=== PATIENT | male | born 1965 | race Caucasian/White ===

== ENCOUNTER → 2017-07-23 | Outpatient (CLI) | payer OTHER ==
[~2017-07-23] MED LIST: ALBU1AER9 INH; ATOR10TA82 PO; MULT-506 PO; RANI150T3 PO; RIVA1TAB4 PO
--- NOTE | 2017-07-23 12:16 | DIAGNOSTIC IMAGING REPORT ---
SINUSES MIN 3 VIEWS ROUTINE HISTORY: 52 years-old Male R05 [id number] Allergic rhinitis acute cough with allergic rhinitis COMPARISON: None available TECHNIQUE: 4 views of the paranasal sinuses FINDINGS: Mastoid air cells and paranasal sinuses appear clear. Nasal terminates also appear clear. No acute facial bone fracture or dislocation. Degenerative changes of the cervical spine are noted. No opaque foreign body. IMPRESSION: No evidence of significant paranasal sinus disease. The above report was generated using voice recognition software. It may contain grammatical, syntax or spelling errors. Electronically signed by: Girma Redding M.D. 07/23/2017 12:15 PM Dictated Date/Time: 07/23/2017 12:13 PM
== END | disposition home or self-care (01) ==
LOC: C.RAD1850 10:15
PROVIDERS: ATTEND Internal Medicine Pulmonary Disease
DX: J30.9 Allergic rhinitis, unspecified (principal); R05 Cough

== ENCOUNTER → 2017-08-03 | Outpatient (CLI) | payer OTHER ==
[~2017-08-03] MED LIST changes: +OPTIRAY 320 IV PRN; +PERFLUTREN LIPID MICROSPHERE (DEFINITY) IV ONE
--- NOTE | 2017-08-03 13:24 | DIAGNOSTIC IMAGING REPORT ---
CT SCAN OF THE CHEST WITH IV CONTRAST CLINICAL HISTORY: Cough. Dyspnea. Chronic reflux. COMPARISON STUDY: Chest CT dated 09/08/2013. TECHNIQUE: Following the IV administration of 94 cc of Optiray 320, CT scan of the thorax was performed from the thoracic inlet to the upper abdomen. Images are reviewed in the axial, sagittal, and coronal planes. IV contrast was administered without complication. A dose lowering technique was utilized adhering to the principles of ALARA. The examination is modestly degraded by motion artifact. CT DOSE: 533.50 mGy.cm FINDINGS: Thyroid: Imaged portions of the thyroid gland are normal in size and attenuation. Thoracic aorta: There is mild atherosclerotic calcification of the thoracic aorta, which is normal in caliber and demonstrates standard 3-vessel arch anatomy. No dissection is seen. Pulmonary vasculature: The pulmonary trunk is normal in caliber. There are no filling defects identified in the central pulmonary vessels to indicate pulmonary embolus. Note that this examination was not protocoled for evaluation of the pulmonary arteries. Heart: The heart is enlarged and without pericardial effusion. The coronary arteries are densely calcified. Lungs and pleural spaces: There is no airspace consolidation or pleural effusion. The trachea and central airways are clear. Mediastinum: There is no mediastinal lymphadenopathy. Lynn: Clear. Axillae: There is no axillary lymphadenopathy. Upper abdomen: There is a small hiatal hernia. Findings suggest hepatic steatosis. Skeletal structures: No lytic or blastic bony lesions are seen. IMPRESSION: 1. The lungs are clear. 2. Cardiomegaly. 3. Suspect hepatic steatosis. Electronically signed by: Jem Butler M.D. 08/03/2017 1:22 PM Dictated Date/Time: 08/03/2017 1:19 PM
--- NOTE | 2017-08-03 16:21 | ECHOCARDIOGRAM REPORT ---
*NOTICE TO RECEIVING [employer] This information is strictly Confidential and protected under [place] law. [place] law prohibits you from making any further disclosure of this information unless further disclosure is expressly permitted by the written consent of the person to whom it pertains or is authorized by law. A general authorization for the release of medical or other information is not sufficient for this purpose. Hospital accepts no responsibility if the information is made available to any other person, INCLUDING THE PATIENT. Interpretation Summary * Name: JUAN ANGELES Study Date: 08/03/2017 12:38 PM BP: 122/82 mmHg * Patient Location: [facility] HR: 77 * : 1965 (M/d/yyyy) Gender: Male Height: 69 in * Age: 52 yrs Ethnicity: CA Weight: 226 lb * Ordering Physician: Lito Mehta * Referring Physician: Lito Mehta * Performed By: Dorothy Garcia RDCS * * Reason For Study: CHEST DISCOMFORT, COUGH * BSA: 2.2 m2 * -- Conclusions -- * Left ventricular systolic function is normal. * Borderline aortic root dilatation. Procedure Details * A contrast injection of Definity was performed to improve assessment of LV function. * Contrast was injected into an intravenous site in the left arm. * One vial of Definity ultrasound contrast was diluted in normal saline to a total volume of 10 ml. A total of '1' ml of solution was administered during imaging. * Lot # [id number] of Definity utilized for procedure. * Expiration date JUL 30. * The attending nurse who injected the contrast agent was ELIZABETH DOMINGUEZ RN. Left Ventricle * The left ventricle is normal in size. * There is normal left ventricular wall thickness. * Ejection Fraction = 50-55%. * Left ventricular systolic function is normal. * Indeterminate diastolic function * The left ventricular wall motion is normal. Right Ventricle * The right ventricle is normal in size and function. * The right ventricular systolic function is normal as assessed by tricuspid annular plane systolic excursion (TAPSE) (normal >1.5 cm). Atria * The left atrial size is normal. * Right atrial size is normal. Mitral Valve * The mitral valve is grossly normal. * There is trace mitral regurgitation. Tricuspid Valve * The tricuspid valve is not well visualized, but is grossly normal. * Significant tricuspid regurgitation is absent. Aortic Valve * The aortic valve is normal in structure and function. * The aortic valve is trileaflet. * No hemodynamically significant valvular aortic stenosis. * There is no significant aortic regurgitation. Pulmonic Valve * The pulmonic valve is not well visualized. Great Vessels * Borderline aortic root dilatation. Pericardium/Pleural * There is no pericardial effusion. MMode 2D Measurements and Calculations IVSd 1.2 cm IVSs 1.8 cm LVIDd 5.3 cm LVIDs 3.8 cm LVPWd 1.0 cm LVPWs 1.5 cm IVS/LVPW 1.1 FS 29.4 % EDV(Teich) 136.8 ml ESV(Teich) 60.3 ml EF(Teich) 55.9 % EDV(cubed) 150.9 ml ESV(cubed) 53.1 ml EF(cubed) 64.9 % % IVS thick 54.1 % % LVPW thick 49.4 % LV mass(C)d 227.4 grams LV mass(C)dI 104.5 grams/m\S\2 LV mass(C)s 251.3 grams LV mass(C)sI 115.5 grams/m\S\2 SV(Teich) 76.5 ml SI(Teich) 35.2 ml/m\S\2 SV(cubed) 97.9 ml SI(cubed) 45.0 ml/m\S\2 Ao root diam 4.0 cm Ao root area 12.4 cm\S\2 LA dimension 3.9 cm LA/Ao 0.98 LVAd ap4 36.9 cm\S\2 LVLd ap4 8.6 cm EDV(MOD-sp4) 127.9 ml EDV(sp4-el) 135.0 ml LVAs ap4 22.4 cm\S\2 LVLs ap4 7.0 cm ESV(MOD-sp4) 61.0 ml ESV(sp4-el) 61.0 ml EF(MOD-sp4) 52.3 % EF(sp4-el) 54.8 % LVAd ap2 33.7 cm\S\2 LVLd ap2 8.4 cm EDV(MOD-sp2) 108.9 ml EDV(sp2-el) 114.4 ml LVAs ap2 19.2 cm\S\2 LVLs ap2 6.7 cm ESV(MOD-sp2) 44.6 ml ESV(sp2-el) 46.7 ml EF(MOD-sp2) 59.1 % EF(sp2-el) 59.2 % LVLd %diff -1.45 % EDV(MOD-bp) 119.6 ml LVLs %diff -4.28 % ESV(MOD-bp) 53.6 ml EF(MOD-bp) 55.2 % SV(MOD-sp4) 66.9 ml SI(MOD-sp4) 30.7 ml/m\S\2 SV(MOD-sp2) 64.3 ml SI(MOD-sp2) 29.6 ml/m\S\2 SV(MOD-bp) 66.0 ml SI(MOD-bp) 30.3 ml/m\S\2 SV(sp4-el) 74.0 ml SI(sp4-el) 34.0 ml/m\S\2 SV(sp2-el) 67.7 ml SI(sp2-el) 31.1 ml/m\S\2 Doppler Measurements and Calculations MV E max qian 79.3 cm/sec MV A max qian 73.2 cm/sec MV E/A 1.1 MV dec time 0.16 sec Ao V2 max 104.7 cm/sec Ao max PG 4.4 mmHg Ao max PG (full) 1.9 mmHg LV V1 max PG 2.5 mmHg LV V1 max 78.5 cm/sec
== END | disposition home or self-care (01) ==
LOC: C.CTS 12:11
PROVIDERS: ATTEND Internal Medicine Pulmonary Disease
DX: Z51.81 Encounter for therapeutic drug level monitoring (principal); Z79.01 Long term (current) use of anticoagulants; K21.0 Gastro-esophageal reflux disease with esophagitis; R05 Cough; R07.89 Other chest pain; I51.7 Cardiomegaly

== ENCOUNTER → 2017-08-17 | Day surgery (SDC) | payer OTHER ==
[2017-08-17] VITALS (7 sets, daily range): BP systolic 118–129; BP diastolic 78–89; PULSE 58–69; TEMP 36–36.7; O2SAT 94–97; Ht 175.3 cm; Wt 101.4 kg
[~2017-08-17] VITALS: Ht 175.3 cm; Wt 101.4 kg
[~2017-08-17] MED LIST changes: +FENTANYL CITRATE INJ 50 MCG/1 ML 2 ML VIAL IV ONE; +LIDOCAINE 4% INH SOLN 4 ML BTL TOP ONE; +LIDOCAINE HCL 2% LOCAL 50ML VIAL INSTIL ONE; +LIDOCAINE VISCOUS 2% 100ML TOP ONE; +MIDAZOLAM HCL 5 MG/ML 1 ML VIAL IV ONE; -OPTIRAY 320 IV PRN; -PERFLUTREN LIPID MICROSPHERE (DEFINITY) IV ONE
--- NOTE | 2017-08-17 09:25 | History and Physical ---
History & Physical Date of Service August 17, 2017. History & Physical 52-year-old gentleman here for bronchoscopic evaluation of chronic cough: Pt presents for a persistent cough. Has post nasal drip, reflux. It switched between dry cough and productive cough with minimal clear sputum. Pt states he coughs a lot and coughs hard. Pt denies any coughing to the point of vomitting, but has seen stars and got light headed. Pt states this has been going on a little over a year. Has taken OTC allerygy medicine, but doesn't help. Cough drops don't help. Denies any OTC cough medicine. Pt states talking a lot and if he gets warm, those things seems to trigger the coughing fit. Pt is taking all rx'd medications as directed./bnw 52-year-old white male with 2 grown children age 26 and 21 works as a computer programmer analyst [employer] that [employer] was referred to me by his primary care provider Timmy Sarmiento/JESUS ALBERTO. He has smoked a half a pack of cigarettes a day for 8-10 years having quit 15 years ago. For 2 years he has had this cough that others have attributed to postnasal drainage and reflux. The latter was treated with ranitidine and he has been on Zyrtec and Amy but has the cough all the time. Is the cough is mostly dry cough associated with hoarseness and a raspy voice. The cough awaken his from sleep 2-3 times at night and he takes multiple cough drops. He talks too much begins to cough. Today history of DVT and pulmonary emboli that of repeat occurred in the past so was on lifetime anticoagulant therapy. There is a strong family history of chronic thrombogenic disease with his sister and on his mother side and multiple members on anticoagulant therapy. He has chronic reflux esophagitis and is treated for that along with dyslipidemia. Chest x-ray in 2013 showed mild retrocardiac opacity with a CT angiogram done at that same time showing extensive bilateral pulmonary emboli involving the left and right side with extension into the small a pulmonary arterial branches and small left pleural effusion noted. Sleep study in [address] Gardner suggest moderate obstructive sleep apnea with an apnea-hypopnea index of 16.5. He was recommended but apparently not started on CPAP therapy. He wakes up 2-3 times a night but his attributes that to his training as a [employer] hearing the slightest noise. He has gained 45 pounds in the past year. He admits to some symptoms of daytime hypersomnolence. Hypercoagulable workup showed a negative beta 2 GPI IgG , IgA, IgM Ab and negative anticardiolipin IgG, IgA and IgM antibody. The [id number] mutation was not detected. Lupus anticoagulant was negative and protein C and S activity were within normal limits. Antithrombin 3 was within normal limits and factor 5 Leiden mutation was within normal limits were not detected. Active Problems 1. Anticoagulation management encounter (Z51.81,Z79.01) 2. Chronic reflux esophagitis (K21.0) 3. Cough (R05) 4. History of colonic polyps (Z86.010) 5. Hypercholesterolemia (E78.00) 6. Internal hemorrhoids (K64.8) 7. Male erectile disorder (N52.9) 8. Screening for diabetes mellitus (Z13.1) Past Medical History 1. History of Acute deep vein thrombosis of distal leg (I82.4Z9) 2. History of Bronchospasm (J98.01) 3. History of Encounter for screening colonoscopy (Z12.11) 4. History of colonic polyps (Z86.010) 5. History of influenza vaccination (Z92.29) 6. History of onychomycosis (Z86.19) 7. History of pulmonary embolism (Z86.711) 8. History of Need for hepatitis C screening test (Z11.59) 9. History of Rhinitis (J31.0) 10. History of Tinea versicolor (B36.0) 11. History of Tinea versicolor (B36.0) Family History 1. Family history of DVT (deep vein thrombosis) in 2. Family history of diabetes mellitus (Z83.3) 3. Family history of sleep apnea (Z82.0) 4. Family history of myocardial infarction (Z82.49) Social History Always uses seat belt Never smoker Current Meds 1. RaNITidine HCl - 150 MG Oral Tablet; TAKE 1 TABLET TWICE DAILY; Therapy: 23Jun2017 to (Last Rx:23Jun2017) Requested for: 23Jun2017 Ordered 2. Atorvastatin Calcium 20 MG Oral Tablet; TAKE 1 TABLET DAILY; Therapy: 07Jul2014 to (Last Rx:[id number]) Requested for: 22Dec2016 Ordered 3. Xarelto 20 MG Oral Tablet; Take 1 tablet daily; Therapy: 17Nov2013 to (Evaluate:18Sep2017) Requested for: 22Dec2016; Last Rx:[id number] Ordered 4. Ketoconazole 200 MG Oral Tablet; TAke 1 PO BID as directed; Therapy: 19Feb2011 to (Last Rx:23Jun2017) Requested for: 23Jun2017 Ordered 5. GNP Acid Control [address] 150 MG Oral Tablet; TAKE 1 TABLET Daily PRN; Therapy: 23Jun2017 to Recorded 6. Multivitamin Adult Oral Tablet; TAKE 1 TABLET DAILY; Therapy: 23Jun2017 to Recorded Vital Signs Weight: 236 lb 5 oz BMI Calculated: 37.01 BSA Calculated: 2.17 Temperature: 97.8 F, Oral Heart Rate: 74 O2 Saturation: 96 Respiration: 16 Blood Pressure: 132 / 84, RUE, Sitting Constitutional General appearance: No acute distress, well appearing and well nourished. Eyes Conjunctiva and lids: No swelling, erythema, or discharge. Pupils and irises: Equal, round and reactive to light. Ears, Nose, Mouth, and Throat External inspection of ears and nose: Normal. Otoscopic examination: Tympanic membrance translucent with normal light reflex. Canals patent without erythema. Oropharynx: Normal with no erythema, edema, exudate or lesions. Pulmonary Respiratory effort: No increased work of breathing or signs of respiratory distress. Auscultation of lungs: Clear to auscultation. Cardiovascular Palpation of heart: Normal PMI, no thrills. Auscultation of heart: Normal rate and rhythm, normal S1 and S2, without murmurs. Examination of extremities for edema and/or varicosities: Normal. Abdomen Abdomen: Non-tender, no masses. Liver and spleen: No hepatomegaly or splenomegaly. Lymphatic Palpation of lymph nodes in neck: No lymphadenopathy. Musculoskeletal Gait and station: Normal. Digits and nails: Normal without clubbing or cyanosis. Inspection/palpation of joints, bones, and muscles: Normal. Skin Skin and subcutaneous tissue: Normal without rashes or lesions. Neurologic Cranial nerves: Cranial nerves 2-12 intact. Reflexes: 2+ and symmetric. Sensation: No sensory loss. Psychiatric Orientation to person, place and time: Normal. Mood and affect: Normal.
--- NOTE | 2017-08-17 10:46 | Pre Sedation Assessment ---
Pre Sedation Assessment General Date of Sedation: August 17, 2017. Vital Signs Past 12 Hours Date Time Temp Pulse Resp B/P (MAP) Pulse Ox O2 Delivery O2 Flow Rate FiO2 08/17/17 09:30 36.7 68 18 118/79 (92) 95 Room Air Review Cardiovascular: regular rate, rhythm, no edema, no gallop, no JVD, no murmur, normal peripheral pulses Lungs: chest non-tender, lungs clear, normal breath sounds, no respiratory distress, no accessory muscle use Pre-Sedation Airway Assessment Smoking Status: Former Smoker Hx of Sleep Apnea: Yes Hx of difficult intubation: No Short Thick Neck: Yes Thyro-mental Distance: > 3 Finger Breadths Oral Cavity: WNL Mallampati Classification: Class II ASA Classification: Class II NPO Status Date of Last Intake of Fluids: August 16, 2017 Time of Last Intake of Fluids: 2099 Date of Last Intake of Solids: August 16, 2017 Time of Last Intake of Solids: 2099 Procedure Planning Contraindications for Sedation: None Current Medications Reviewed: Yes Notes The planned sedation has been discussed with the patient. Informed Consent was obtained. I have identified the patient, determined the appropriateness of sedation and have assessed the patient immediately prior to the procedure. All medicine(s) and interventions are by my order.
--- NOTE | 2017-08-17 10:46 | History & Physical Bridge Note ---
H&P Re-Evaluation Bridge Note: I have examined the patient, reviewed the History & Physical and in the interval since the performance of the History & Physical I have noted the following changes of clinical significance: No changes noted
--- NOTE | 2017-08-17 11:26 | Bronchoscopy Procedure Note ---
Bronchoscopy Procedure Note Procedure: Bronchoscopy, conscious sedation, the bronchial lavage right middle lobe Consent: Obtained through the patient placed into the chart Pre-procedural diagnosis: Chronic cough Post-procedural diagnosis: Chronic cough Start time:1105 End time: 1120 Total time: 15 minutes Analgesia: 2% liquid lidocaine: Via nebulizer 4% gel lidocaine: Via right naris 2% liquid lidocaine: Via bronchoscopy Sedation: Versed IV: 3mg Fentanyl IV: 75g Procedure: The [employer] video bronchoscope was used for this procedure and passed down through the right naris Right naris/posterior naris/posterior oropharynx: Anatomically within normal limits Glottis: Anatomically within normal limits Vocal cords: Proper abduction and abduction, anatomically within normal limits Subglottis/trachea/Darlene: Anatomically within normal limits Right bronchial tree: Right mainstem bronchus: Anatomically within normal limits Right upper lobe: Anatomically within normal limits Bronchus intermedius: Anatomically within normal limits Right middle lobe: Anatomically within normal limits Right lower lobe: Anatomically within normal limits Findings: No significant findings noted Left bronchial tree: Left mainstem bronchus: Anatomically within normal limits Left upper lobe: Anatomically within normal limits Lingula: Anatomically within normal limits Left lower lobe: Anatomically within normal limits Findings: No significant findings noted Bronchial alveolar lavage: Right middle lobe EBL: None Complications: None Follow-up: [facility]SU
--- NOTE | 2017-08-17 11:26 | Post Sedation Assessment ---
Post Sedation Assessment General Date of Sedation August 17, 2017. Vital Signs: Vital Signs Past 12 Hours Date Time Temp Pulse Resp B/P (MAP) Pulse Ox O2 Delivery O2 Flow Rate FiO2 08/17/17 11:20 67 21 131/107 100 Oxymask 4 08/17/17 11:15 61 16 129/82 100 Oxymask 4 08/17/17 11:10 58 16 116/85 100 Oxymask 4 08/17/17 11:05 48 21 126/82 100 Oxymask 4 08/17/17 11:02 51 21 129/85 100 Oxymask 4 08/17/17 09:30 36.7 68 18 118/79 (92) 95 Room Air Post Procedure Recovery Score Activity: (2) Moves 4 extremities * Respiration: (2) Deep breath/cough Circulation: (2) +/-20% PreAnes Value Consciousness: (2) Fully Awake Oxygen Saturation: (1) O2 needed for >90% Discharge Sedation Level of Care: Fast Track Phase II Post Sedation Plan On clinical assessment, the patient appears to have tolerated the sedation without complications. Patient is recovering as anticipated. Patient will continue to be monitored by nursing and may be discharged when sedation discharge criteria are met per below protocol. Upon Completions of procedure and additional 15 minutes continue every 5 minute vital signs and the P.A.R. score; then discharge to a Phase I or Fast Track to Phase II per the following guidelines: * Discharge Patient to appropriate Phase II area if PAR is 8 or greater or return to pre- procedure baseline. The post - procedure orders will be as directed. * If PAR score is less than 8 or not return to pre-procedure baseline then patient will follow Phase I monitoring till PAR is reached for Phase II. The Phase I may be done in procedure room or may call to secure a Phase I area. * If naloxone or flumazenil are used for reversal, hold in Phase I for an additional 60 -120 minutes before discharge to Phase II. Please call the Sedation Physician to re-evaluate and complete post-note for discharge to Phase II area. Do NOT discharge from procedure sedation or Phase 1 until post- sedation evaluation note is complete by procedure /sedation MD Sedation Discharge Instructions to be given to the patient at discharge to home.
--- NOTE | 2017-08-17 11:30 | Discharge Instructions ---
Discharge Instructions Date of Service August 17, 2017. Admission Reason for Admission: Cough, Shortness Of Breath Discharge Discharge Diagnosis / Problem: Chronic cough Discharge Goals Goal(s): Diagnostic testing Activity Recommendations Activity Limitations: resume your previous activity Exercise/Sports Limitations: as tolerated Driving or Machine Use: resume 1 day after discharge . Instructions / Follow-Up Instructions / Follow-Up Follow-up with Dr. Lito Mehta at the [facility] pulmonary clinic Current Hospital Diet Patient's current hospital diet: Discharge Diet Recommended Diet: Regular Diet Procedures Procedures Performed: bronchoscopy, conscious sedation and bronchial lavage of the right middle lobe Pending Studies Studies pending at discharge: no Medical Emergencies . Who to Call and When: Medical Emergencies: If at any time you feel your situation is an emergency, please call 911 immediately. . Non-Emergent Contact Non-Emergency issues call your: [facility] [employer] Call Non-Emergent contact if: temperature is above 101 . . "Provider Documentation" section prepared by Redd Reyes. .
== END | disposition home or self-care (01) ==
LOC: C.ACU 08:29
PROVIDERS: ATTEND Internal Medicine Critical Care Medicine
DX: R05 Cough (principal); N52.9 Male erectile dysfunction, unspecified; K21.0 Gastro-esophageal reflux disease with esophagitis; E78.5 Hyperlipidemia, unspecified; Z79.01 Long term (current) use of anticoagulants; E78.00 Pure hypercholesterolemia, unspecified; Z86.718 Personal history of other venous thrombosis and embolism; Z87.891 Personal history of nicotine dependence; Z86.711 Personal history of pulmonary embolism; Z83.3 Family history of diabetes mellitus; Z82.0 Family history of epilepsy and other diseases of the nervous system; Z82.49 Family history of ischemic heart disease and other diseases of the circulatory system; Z79.899 Other long term (current) drug therapy